=== PATIENT | male | born 1955 | race African-American/Black ===

== ENCOUNTER 2017-09-08 01:12 | Emergency (ER) | payer MEDICARE, OTHER ==
--- NOTE | 2017-09-08 01:40 | C.PDOC ---
History Of Present Illness 62 year old male who is a noninsulin dependent diabetic presents to the ER with a complaint of right foot pain worsening over the last few days. Patient reports he has been having worsening bilateral leg pain and bilateral burning foot pain, right greater than left. Denies weakness, numbness, fever, or chills. Time Seen by Provider: 09/08/17 01:39 Chief Complaint (Nursing): Lower Extremity Problem/Injury History Per: Patient History/Exam Limitations: no limitations Onset/Duration Of Symptoms: Days Current Symptoms Are (Timing): Still Present Severity: Moderate Pain Scale Rating Of: 4 Recent travel outside of the [place]: No Past Medical History Reviewed: Historical Data, Nursing Documentation, Vital Signs Vital Signs: Last Vital Signs Temp 98.2 F 09/08/17 03:23 Pulse 65 09/08/17 03:23 Resp 20 09/08/17 03:23 BP 185/90 H 09/08/17 03:23 Pulse Ox 97 09/08/17 03:23 - Medical History PMH: CHF, HTN, Hypercholesterolemia Family History: States: No Known Family Hx - Social History Hx Alcohol Use: No Hx Substance Use: No - Immunization History Hx Tetanus Toxoid Vaccination: No Hx Pneumococcal Vaccination: No Review Of Systems Constitutional: Negative for: Fever, Chills Musculoskeletal: Positive for: Leg Pain, Foot Pain Neurological: Negative for: Weakness, Numbness Physical Exam - Physical Exam Appears: Non-toxic Skin: Warm, Dry Head: Normacephalic Oral Mucosa: Moist Chest: Symmetrical, No Tenderness Cardiovascular: Rhythm Regular Respiratory: No Rales, No Rhonchi, No Wheezing Gastrointestinal/Abdominal: Soft, No Tenderness, Other (Obese) Extremity: Capillary Refill (<2 seconds), No Deformity, Other (Sensation intact) Neurological/Psych: Oriented x3 ED Course And Treatment - Laboratory Results Result Diagrams: 09/08/17 02:11 09/08/17 02:11 O2 Sat by Pulse Oximetry: 96 (Room air) Pulse Ox Interpretation: Normal Progress Note: Blood work and urinalysis ordered. Dilaudid and IV fluids administered. Reevaluation Time: 05:03 Reassessment Condition: Improved Disposition Counseled Patient/Family Regarding: Studies Performed, Diagnosis, Need For Followup, Rx Given - Disposition Referrals: Alla Lange [Medical Doctor] - Disposition: HOME/ ROUTINE Disposition Time: 01:39 Condition: FAIR Prescriptions: Gabapentin 300 mg PO TID #30 capsule Instructions: Diabetic Neuropathy (DC) Forms: [employer] (Serbian) - Clinical Impression Clinical Impression: Diabetic neuropathy - Scribe Statement The provider has reviewed the documentation as recorded by the Scribnathan Masterson All medical record entries made by the Scribe were at my direction and personally dictated by me. I have reviewed the chart and agree that the record accurately reflects my personal performance of the history, physical exam, medical decision making, and the department course for this patient. I have also personally directed, reviewed, and agree with the discharge instructions and disposition.
[2017-09-08] MEDS ORDERED: HYDROmorphone 1 mg/ml ISec IVP STA (01:52)
[2017-09-08] MEDS ORDERED: Sodium Chloride 0.9% 1,000 ML IV SCH (02:00)
[2017-09-08] MEDS ORDERED: HYDROmorphone 1 mg/ml ISec ONE (02:16)
[2017-09-08 02:17] LABS: URINE BILIRUBIN NEGATIVE (NEGATIVE); URINE CLARITY Clear (Clear); URINE COLOR Yellow (YELLOW); URINE GLUCOSE (UA) NORMAL (Normal); URINE LEUKOCYTE ESTERASE NEG Leu/uL (Negative); URINE PROTEIN NEGATIVE (NEGATIVE); URINE UROBILINOGEN NORMAL mg/dL (0.2-1.0)
[2017-09-08 02:19] LABS: BASO # 0.1 K/uL (0.0-0.2); BASO % 0.7 % (0.0-2.0); EOS # 0.3 K/uL (0.0-0.7); HEMOGLOBIN 12.6 g/dL (12.0-18.0); LYMPH % 10.3 % (20.0-40.0); MEAN CELL VOLUME 85.3 fL (80.0-94.0); MEAN PLATELET VOLUME 8.3 fL (7.2-11.7); MONO # 1.2 K/uL (0.0-0.8); MONO % 11.3 % (0.0-10.0); NEUT # 7.6 K/uL (1.8-7.0); NEUT % 74.7 % (50.0-75.0); RBC 4.35 Mil/uL (4.40-5.90); RED CELL DISTRIBUTION WIDTH 15.8 % (11.5-14.5); WHITE BLOOD COUNT 10.2 K/uL (4.8-10.8)
[2017-09-08 02:22] LABS: URINE BLOOD NEGATIVE (NEGATIVE)
[2017-09-08 02:30] LABS: CALCIUM 9.7 mg/dl (8.6-10.4)
[2017-09-08 05:47] VITALS: BP 176/79; PULSE 54; RESP 18; TEMP 98.6
[2017-09-08 05:55] VITALS: O2SAT 96
== END 2017-09-08 07:40 | disposition home or self-care (01) ==
LOC: C.ER 01:12
DX: E11.40 Type 2 diabetes mellitus with diabetic neuropathy, unspecified (principal); E78.00 Pure hypercholesterolemia, unspecified; I50.9 Heart failure, unspecified; I10 Essential (primary) hypertension
CPT/HCPCS: 80048; 81001; 82948; 85025; 96374; 99284; J1170; J7040